=== PATIENT | female | born 1970 | race Caucasian/White ===

== ENCOUNTER 2017-06-29 05:35 | Day surgery (SDC) | payer BC ==
[~2017-06-29] VITALS: Ht 172.7 cm; Wt 68.2 kg
[~2017-06-29 05:35] MED LIST: LO-DOSE ASPIRIN81 M2 PO; MINOCIN100 MG PO; RETIN-A 0.01%15 GM TP; SPRINTEC1 EACH PO
[2017-06-29 07:08] VITALS: BP 166/85
[2017-06-29 09:10] VITALS: BP 135/55
[2017-06-29 10:08] VITALS: BP 110/64
== END 2017-06-29 10:18 | disposition home or self-care (01) ==
LOC: SDC 05:35
DX: Z30.2 Encounter for sterilization (principal); N92.0 Excessive and frequent menstruation with regular cycle; E78.00 Pure hypercholesterolemia, unspecified; Z79.82 Long term (current) use of aspirin
CPT/HCPCS: 88305; J0131; J1100; J1885; J2250; J2405; J2710; J2765; J3010; Q0175; S0020